=== PATIENT | female | born 1980 | race African-American/Black ===

== ENCOUNTER 2021-03-13 17:50 | Emergency (ER) | payer OTHER, SELFPAY ==
[2021-03-13 18:04] VITALS: BP 147/91; PULSE 90; RESP 16; TEMP 36.8; O2SAT 100
--- NOTE | 2021-03-13 18:07 | ED.GENADULT ---
HPI - General Adult General Chief complaint: Unspecified Stated complaint: Light Headed Time Seen by Provider: 03/13/21 18:07 Source: patient and RN notes reviewed Mode of arrival: ambulatory Limitations: no limitations History of Present Illness HPI narrative: 41-year-old female presents to the [facility] with complaints of being lightheaded for 1 hour. Patient denies any headaches, blurry vision, change in vision, chest pain, abdominal pain. No nausea vomiting or diarrhea. Just states that she is a little lightheaded. States she has a history of hypertension but has not taken her medication. Reports increased stress due to losing her son and his birthday was yesterday. Related Data Home Medications Medication Instructions Recorded Confirmed No Home Medications 03/13/21 03/13/21 Review of Systems Constitutional: Constitutional: Reports no additional constitutional complaints, Denies chills and Denies fever(s) Eyes: Eyes: Reports no additional eye complaints, Denies change in vision and Denies photophobia ENT: Reports system reviewed and no additional complaints, except as documented, Denies vertigo, Denies dizziness, Denies nasal congestion and Denies sore throat Cardiovascular: Cardiovascular: Reports no additional cardiovascular complaints, Denies chest pain and Denies radiating jaw, neck or arm pain Respiratory: Respiratory: Reports no additional respiratory complaints, Denies cough, Denies dyspnea and Denies wheezing Gastrointestinal: Gastrointestinal: Reports no additional gastrointestinal complaints, Denies abdominal pain, Denies nausea and Denies vomiting Genitourinary: Genitourinary: Reports no additional female genitourinary complaints, Denies nocturia, Denies dysuria, Denies flank pain and Denies urinary incontinence Musculoskeletal: Musculoskeletal: Reports no additional musculoskeletal complaints and Denies back pain Integumentary/Breasts: Skin/Breast: Reports system reviewed and no additional complaints, except as docu Neurologic: Reports as per HPI, Denies vertigo, Denies dizziness, Denies syncope, Denies headache(s), Denies focal weakness and Denies weakness Comments: lightheaded. Psychiatric: Psychiatric: Reports no additional psychiatric complaints Allergic/Immunologic: Allergic/Immunologic: Reports no additional allergic/immunologic complaints [facility] Past Medical History Medical History (Updated 03/13/21 @ 18:28 by Lizzeth Aguero) High cholesterol Hypertension Social History Social History (Updated 03/13/21 @ 18:27 by Lizzeth A. Topper) Gender identity (if verbalized by the patient): Female Comments At the time of my signature, I reviewed and agree with the nursing past medical, surgical, social, and family history. There is no relevant family history pertinent to the patient complaint. Exam Const: General: healthy appearing, no acute distress and alert Nutritional Appearance: well nourished Orientation/consciousness: patient oriented x3 Limitations: no limitations HENMT: Head: normal to inspection Ears: external ears normal, TM's normal bilaterally and EAC's normal Eyes: Conjunctivae: conjunctivae normal Pupils: Equal, round and reactive pupils present Neck: Neck: normal visual inspection, no lymphadenopathy and no meningeal signs Chest: Chest palpation & inspection: normal inspection of the chest Resp: Effort & Inspection: normal respiratory effort Auscultation: clear to auscultation bilaterally Cardio: Rate: regular rate Rhythm: regular rhythm GI: GI Palp: Yes Soft to palpation and No Tenderness to palpation present (GI) : General: Yes no CVA tenderness Back/Spine/Pelvis: Back: no CVA tenderness Skin: General skin exam: normal color and no jaundice Rashes: no rashes Wounds: no wounds Neuro: General: patient oriented x3, moves all extremities, no meningeal signs and no focal motor deficits Speech: normal speech Gait exam (Neuro): Normal gait present Extrem:
[2021-03-13 18:23] VITALS: BP 143/79; PULSE 87
[2021-03-13 18:25] VITALS: BP 148/81; PULSE 92
[2021-03-13 18:29] VITALS: BP 142/83; PULSE 88
== END 2021-03-13 18:50 | disposition home or self-care (01) ==
PROVIDERS: Emergency Provider Nurse Practitioner
DX: R42 Dizziness and giddiness (principal); I10 Essential (primary) hypertension
CPT/HCPCS: 99202; G0463

== ENCOUNTER 2022-02-23 20:15 | Emergency (ER) | payer OTHER, SELFPAY ==
[2022-02-23 20:19] VITALS: BP 145/74; PULSE 100; RESP 20; TEMP 36.7; O2SAT 100
[2022-02-23 20:43] LABS: Basophils Percent Auto 0.3 % (0.2-1.2); Eosinophils Absolute Auto 0.3 K/mm3 (0-0.3); Eosinophils Percent Auto 2.8 % (0-4.4); Hematocrit 36.3 % (37.0-47.0); Hemoglobin 10.7 g/dL (12.0-15.0); Immature Granulocyte Absolute 0.03 K/mm3 (0.00-0.031); Immature Granulocyte Percent A 0.3 % (0-0.5); Lymphocytes Percent Auto 34.7 % (18.3-44.2); Mean Corpuscular HGB Conc 29.5 g/dl (32-36); Mean Corpuscular Hemoglobin 23.1 pg (26-34); Mean Corpuscular Volume 78.4 fl (80-100); Mean Platelet Volume 10.5 fl (7.4-10.4); Monocytes Absolute Auto 0.8 K/mm3 (0.1-0.6); Monocytes Percent Auto 7.8 % (2.6-8.5); Neutrophils Absolute Auto 5.6 K/mm3 (1.3-6.7); Neutrophils Percent Auto 54.1 % (45.5-73.1); Platelet Count Result 260 k/mm3 (150-375); Red Blood Count 4.63 M/mm3 (4.2-5.4); Red Cell Distribution Width 18.1 % (11.5-14.5); White Blood Count 10.4 K/mm3 (4.5-10.0)
[2022-02-23 20:55] LABS: Alanine Aminotransferase 16 U/L (6-35); Albumin Level 4.2 g/dL (3.5-5.1); Alkaline Phosphatase 83 U/L (38-126); Anion Gap 12 mmol/L (8-16); Aspartate Amino Transferase 20 U/L (14-36); Bilirubin,Total 0.2 mg/dL (0.2-1.3); Blood Urea Nitrogen 8 mg/dL (7-17); Calcium 9.2 mg/dL (8.4-10.2); Carbon Dioxide 23 mmol/L (22-30); Chloride 106 mmol/L (98-107); Estimated CRCL calculation 117 ml/min; Estimated Glomerular Filt Rate > 60; Glucose 122 mg/dL (65-110); Lipase 89 U/L (23-300); Potassium 3.6 mmol/L (3.4-5.0); Sodium 141 mmol/L (137-145)
[2022-02-23 21:08] LABS: Hypochromasia 1+ (NORMAL); Platelet Estimate Adequate (Adequate)
[2022-02-23 21:10] LABS: Anisocytosis 2+ (NORMAL); Ovalocytes 1+ (NORMAL); Schistocytes None Seen (NORMAL); Stomatocytes 1+ (NORMAL)
== END 2022-02-23 23:18 | disposition left against medical advice (07) ==
LOC: ANHED 23:29
PROVIDERS: Emergency Provider Emergency Medicine
DX: R10.9 Unspecified abdominal pain (principal)
CPT/HCPCS: 36415; 80053; 83690; 85025; 99199

== ENCOUNTER 2023-02-22 07:46 | Emergency (ER) | payer OTHER, SELFPAY ==
--- NOTE | ~2023-02-22 | US_ITS ---
EXAMINATION: US right upper quadrant DATE: 02/22/2023 09:14 INDICATION: Right upper quadrant abdominal pain. TECHNIQUE: Multiple grayscale and Doppler ultrasound images of the abdomen were obtained. COMPARISON: None FINDINGS: The visualized portions of the head and body of the pancreas are normal. The liver is erika l without focal lesion. No liver surface nodularity. There is normal flow in main portal vein. The ga llbladder is normal in size. No gallstones or gallbladder wall thickening. There is no sonographic Mu rphy sign. The common duct is normal and measures 3 mm. IMPRESSION: 1. Normal right upper quadrant ultrasound. Reviewed, dictated and finalized at location [facility]
[2023-02-22 07:51] VITALS: BP 135/81; PULSE 100; RESP 18; TEMP 37.2; O2SAT 100
[2023-02-22] MEDS: SODIUM CHLORIDE 0.9% IV 1,000 ML 999 ML IV CONT (08:13)
[2023-02-22] MEDS: ONDANSETRON INJ 4 MG/2 ML VIAL IV PUSH (08:14)
[2023-02-22] MEDS: MORPHINE SULFATE (*CRX) 4 MG/ML INJ IV PUSH (08:14)
[2023-02-22 08:16] LABS: Hematocrit 37.6 % (37.0-47.0); Hemoglobin 11.1 g/dL (12.0-15.0); Immature Platelet Fraction Pct 9.6 % (0.9-11.2); Mean Corpuscular HGB Conc 29.5 g/dl (32-36); Mean Corpuscular Hemoglobin 23.5 pg (26-34); Mean Corpuscular Volume 79.7 fl (80-100); Mean Platelet Volume 11.4 fl (7.4-10.4); Platelet Count Result 239 k/mm3 (150-375); Red Blood Count 4.72 M/mm3 (4.2-5.4); Red Cell Distribution Width 18.9 % (11.5-14.5); White Blood Count 4.3 K/mm3 (4.5-10.0)
--- NOTE | 2023-02-22 08:29 | ED.ABDPAIN ---
HPI - Abdominal Pain General Chief Complaint: Abdominal Pain Stated Complaint: ABD PAIN, NO ENERGY Time Seen by Provider: 02/22/23 08:04 History of Present Illness HPI narrative: Patient is a 43-year-old female who presents ER with right-sided abdominal pain in the upper quadrant radiating to her right flank. Ongoing for 2 days. Worse with eating and drinking. She does still have a gallbladder. No fevers or chills or sweats. Pain improves if she lays on her right side. Denies diarrhea or constipation. Patient also reports fatigue ongoing for the same amount of time and feels generally weak. No lateralizing or focal weakness. Related Data Allergies Allergy/AdvReac Type Severity Reaction Status Date / Time No Known Allergies Allergy Verified 02/22/23 07:54 Review of Systems Review of Systems: All systems reviewed & are unremarkable except as noted in HPI and below Constitutional: Constitutional: Denies chills, Reports fatigue, Denies fever(s) and Reports weakness ENT: Denies nasal congestion and Denies sore throat Cardiovascular: Cardiovascular: Reports no additional cardiovascular complaints Respiratory: Respiratory: Reports no additional respiratory complaints Gastrointestinal: Gastrointestinal: Reports abdominal pain, Denies bloating, Denies constipation, Denies diarrhea, Reports nausea and Denies vomiting Genitourinary: Genitourinary: Reports no additional female genitourinary complaints Musculoskeletal: Musculoskeletal: Reports no additional musculoskeletal complaints PMFSH Past Medical History Medical History (Updated 02/22/23 @ 11:46 by Yamil Grande MD) High cholesterol Hypertension Surgical History Surgical History (Updated 02/22/23 @ 08:37 by Yamil Grande MD) No history of previous surgery Social History Social History (Updated 03/13/21 @ 18:27 by Lizzeth Aguero APRN) Gender identity (if verbalized by the patient): Female Exam Narrative: GENERAL: Well-appearing, well-nourished, and in no acute distress. HEAD: Normocephalic, atraumatic. ENT: Mucous membranes moist. NECK: Supple. CHEST: Clear to auscultation. No respiratory distress. HEART: Regular rate and rhythm. Normal peripheral pulses. ABDOMEN: Soft, tender to palpation right upper quadrant without guarding, nondistended. EXTREMITIES: Normal range of motion. No edema. SKIN: Warm, dry, no rash. NEURO: Alert and oriented x3. PSYCH: Normal mood and affect. Course Course Emergency Course: Lab work unremarkable. Patient felt appropriate for outpatient treatment and follow-up. Will prescribe Bentyl and Protonix. Vital Signs Vital signs: Vital Signs Temperature 98.9 F 02/22/23 07:51 Pulse Rate 100 02/22/23 07:51 Respiratory Rate 18 02/22/23 07:51 Blood Pressure 135/81 02/22/23 07:51 Pulse Oximetry 100 02/22/23 07:51 Temperature 98.9 F 02/22/23 07:51 Pulse Rate 75 02/22/23 11:56 Respiratory Rate 20 02/22/23 11:56 Blood Pressure 130/71 02/22/23 11:56 Pulse Oximetry 98 02/22/23 11:56 MDM - Abdominal Pain Lab Data 02/22/23 08:07 02/22/23 08:23 Labs: Lab Results 02/22/23 02/22/23 02/22/23 Range/Units 08:07 08:23 10:01 WBC 4.3 L (4.5-10.0) K/mm3 RBC 4.72 (4.2-5.4) M/mm3 Hgb 11.1 L (12.0-15.0) g/dL Hct 37.6 (37.0-47.0) % MCV 79.7 L (80-100) fl MCH 23.5 L (26-34) pg MCHC 29.5 L (32-36) g/dl RDW 18.9 H (11.5-14.5) % Plt Count 239 (150-375) k/mm3 MPV 11.4 H (7.4-10.4) fl Immature Gran % (Auto) Not Reportable Neut % (Auto) Not Reportable Lymph % (Auto) Not Reportable Humphreys % (Auto) Not Reportable Eos % (Auto) Not Reportable Baso % (Auto) Not Reportable Lymph # (Auto) Not Reportable Humphreys # (Auto) Not Reportable Eos # (Auto) Not Reportable Baso # (Auto) Not Reportable Abs Immat Gran (auto) Not Reportable Absolute Neuts (auto)
--- NOTE | 2023-02-22 08:32 | PC.NURSE ---
Pt taken to US
[2023-02-22 08:35] LABS: Band Neutrophils Percent 5 % (0-6); Hypochromasia 1+ (NORMAL); Lymphocytes Absolute Manual 1.46 K/mm3 (1.1-4.5); Monocytes Absolute Manual 0.51 K/mm3 (0.1-0.90); Monocytes Percent Manual 12 % (3-9); Neutrophils Absolute Manual 2.32 K/mm3 (1.7-7.2); Neutrophils Percent Manual 49 % (46-73); Platelet Estimate Adequate (Adequate); Schistocytes None Seen (NORMAL); Total Cells Counted 100
[2023-02-22 08:45] LABS: Alanine Aminotransferase 14 U/L (6-35); Alkaline Phosphatase 64 U/L (38-126); Anion Gap 9 mmol/L (8-16); Aspartate Amino Transferase 18 U/L (14-36); Bilirubin,Total 0.4 mg/dL (0.2-1.3); Blood Urea Nitrogen 11 mg/dL (7-17); Calcium 9.1 mg/dL (8.4-10.2); Carbon Dioxide 22 mmol/L (22-30); Chloride 106 mmol/L (98-107); Estimated CRCL calculation 99 ml/min; Estimated Glomerular Filt Rate > 60; Glucose 92 mg/dL (65-110); Lipase 53 U/L (23-300); Potassium 3.4 mmol/L (3.4-5.0); Sodium 137 mmol/L (137-145)
[2023-02-22 10:09] LABS: Appearance Urine Clear (Clear); Bilirubin Urine Negative (Negative); Blood Urine Negative (Negative); Color Urine Yellow (Yellow); Glucose Urine UA Negative (Negative); Ketones Urine Negative (Negative); Leukocyte Esterase Ur Negative LEU/UL (Negative); Nitrate Urine Negative (Negative); Protein Urine Negative (Negative); Specific Grav Ur 1.015 (1.001-1.035); Urobilinogen Urine 0.2 mg/dL (<2.0); pH Urine 5.5 (5.0-9.0)
[2023-02-22 10:13] LABS: Add Urine Microscopic? NO
[2023-02-22 11:12] VITALS: BP 116/68; PULSE 79; RESP 18; O2SAT 92
[2023-02-22 11:56] VITALS: BP 130/71; PULSE 75; RESP 20; O2SAT 98
== END 2023-02-22 11:57 | disposition home or self-care (01) ==
PROVIDERS: Emergency Provider Emergency Medicine
DX: R10.13 Epigastric pain (principal); E78.00 Pure hypercholesterolemia, unspecified; I10 Essential (primary) hypertension
CPT/HCPCS: 36415; 76705; 80053; 81003; 81025; 83690; 85025; 85055; 96361; 96374; 96375; 99284; J2270; J2405; J7030

== ENCOUNTER 2023-08-18 09:15 | Emergency (ER) | payer OTHER, SELFPAY ==
[2023-08-18 09:19] VITALS: BP 125/76; PULSE 91; RESP 16; TEMP 36.4; O2SAT 100
--- NOTE | 2023-08-18 09:23 | ED.ALLEREA ---
HPI - Allergic Reaction General Chief complaint: Allergic Reaction Stated complaint: allergic reaction Time Seen by Provider: 08/18/23 09:21 History of Present Illness HPI narrative: 43-year-old female history of hypertension presents to the emergency room for sudden onset of lower lip swelling. Patient has a remote history of similar symptoms. Patient states previous episode occurred after she was taking lisinopril. Patient states her blood pressure medicines have been changed to amlodipine and hydrochlorothiazide. Denies any tongue swelling, swelling to the back of her throat, hoarseness, shortness of breath or difficulty breathing. Patient denies any nausea vomiting or abdominal pain. Related Data Allergies Allergy/AdvReac Type Severity Reaction Status Date / Time lisinopril Allergy Severe Swelling Verified 08/18/23 09:44 of Lip/Tongue/Throat Review of Systems Review of Systems: ROS unremarkable except for noted in HPI PMFSH Past Medical History Medical History High cholesterol Hypertension Surgical History Surgical History No history of previous surgery Social History Social History Gender identity (if verbalized by the patient): Female Exam Narrative: GENERAL: Well-appearing, well-nourished, no physical limitations, and in no acute distress. HEAD: Normocephalic, atraumatic. EYES: Conjunctivae normal, PERRLA and EOMI. ENT: External nose normal, Nares clear, no rhinorrhea or epistaxis. Mucous membranes moist. Oropharynx without edema. Edema noted to lower lip NECK: Supple. CHEST: Clear to auscultation. No respiratory distress. No wheezes rales or rhonchi. No tenderness. HEART: Regular rate and rhythm. No murmur heard. Normal peripheral pulses. ABDOMEN: Soft, nontender, nondistended, normal active bowel sounds. EXTREMITIES: Normal range of motion. No edema. No clubbing or cyanosis SKIN: Warm, dry, no rash. No noted wounds NEURO: No focal deficits. Alert and oriented x3. MAEW. CN's II-XI intact bilaterally, normal gait PSYCH: Cooperative. Normal mood and affect. Course Course Emergency Course: Patient given Benadryl, Pepcid and dexamethasone after initial evaluation. Patient reports no worsening swelling of the lower lip. Denies any shortness of breath difficulty breathing or throat swelling. Will discharge patient home stable condition follow up primary care Vital Signs Vital signs: Vital Signs Temperature 36.4 C 08/18/23 09:19 Pulse Rate 91 08/18/23 09:19 Respiratory Rate 16 08/18/23 09:19 Blood Pressure 125/76 08/18/23 09:19 Pulse Oximetry 100 08/18/23 09:19 Temperature 36.4 C 08/18/23 09:19 Pulse Rate 78 08/18/23 12:19 Respiratory Rate 12 08/18/23 12:19 Blood Pressure 116/68 08/18/23 12:19 Pulse Oximetry 100 08/18/23 12:19 Oxygen Delivery Room Air 08/18/23 09:42 Discharge Plan Discharge Clinical Impression: Angioedema Patient Disposition: Home, Self-Care Condition: Stable Instructions: Antibiotic Form Additional Instructions: Follow-up with primary care doctor in 1-2 days. Return to the emergency room if swelling does not improve or worsens, her orient above shortness of breath or difficulty Prescriptions: No Action dicyclomine 20 mg tablet 20 mg PO QID Qty: 20 0RF pantoprazole [Protonix] 20 mg tablet,delayed release (DR/EC) 20 mg PO HS Qty: 14 0RF Follow-up/Referrals: PHYSICIAN,INGREDIENT SCALER [Non-Staff] - Time of Disposition: 13:10
--- NOTE | 2023-08-18 09:38 | PC.NURSE ---
pt reports she is not taking lisinopril anymore and takes amlodipine. pt reports she has not taken lisinopril for a few years now.
[2023-08-18 09:42] VITALS: O2SAT 100
[2023-08-18] MEDS: dexAMETHasone SOD PHOS INJ 10 MG/ML 1 ML VIAL IV PUSH (09:46)
[2023-08-18] MEDS: diphenhydrAMINE HCl INJ 50 MG/ML VIAL 25 MG IV PUSH (09:47)
[2023-08-18] MEDS: FAMOTIDINE 20 MG/2 ML VIAL IV PUSH (09:47)
[2023-08-18] MEDS: SODIUM CHLORIDE 0.9% IV 1,000 ML 999 ML IV CONT (09:49)
[2023-08-18 10:29] VITALS: BP 126/83; PULSE 77; RESP 16; O2SAT 100
[2023-08-18 11:25] VITALS: BP 133/81; PULSE 75; RESP 22; O2SAT 100
[2023-08-18 12:19] VITALS: BP 116/68; PULSE 78; RESP 12; O2SAT 100
[2023-08-18 13:25] VITALS: BP 126/81; PULSE 83; RESP 16; O2SAT 100
== END 2023-08-18 13:27 | disposition home or self-care (01) ==
PROVIDERS: Emergency Provider Nurse Practitioner Family
DX: T78.3XXA Angioneurotic edema, initial encounter (principal); I10 Essential (primary) hypertension; E78.00 Pure hypercholesterolemia, unspecified
CPT/HCPCS: 96361; 96374; 96375; 99284; J1100; J1200; J7030